=== PATIENT | female | born 1965 | race Caucasian/White ===

== ENCOUNTER → 2018-02-12 11:30 | Outpatient (CLI) | payer OTHER, SELFPAY ==
--- NOTE | 2018-02-12 11:37 | EKG12_ITS ---
Test Reason : PRE-OP Blood Pressure : / mmHG Vent. Rate : 086 BPM Atrial Rate : 086 BPM P-R Int : 146 ms QRS Dur : 072 ms QT Int : 380 ms P-R-T Axes : 024 009 006 degrees QTc Int : 454 ms Normal sinus rhythm Normal ECG Confirmed by CRISTOBAL NORRIS, TYSON ([id number]), assistant editor JESSICA FUENTES ([id number] on 02/14/2018 1:10:40 PM Referred By: OUT DOCTOR Confirmed By:TYSON JAIN MD
== END ==
PROVIDERS: Family Provider Preventive Medicine Occupational Medicine; PCP Preventive Medicine Occupational Medicine
DX: J38.3 Other diseases of vocal cords (principal); R05 Cough
CPT/HCPCS: 93005